=== PATIENT | female | born 2000 | race African-American/Black ===

== ENCOUNTER 2021-10-16 09:34 | Emergency (ER) | payer OTHER ==
[~2021-10-16] VITALS: Ht 154.9 cm; Wt 59.0 kg
[2021-10-16 16:44] VITALS: BP 108/66; TEMP 98.2
== END 2021-10-16 16:47 | disposition home or self-care (01) ==
LOC: ED 09:34
DX: Z32.01 Encounter for pregnancy test, result positive (principal)
CPT/HCPCS: 81025; 99282